=== PATIENT | female | born 1970 | race Caucasian/White ===

== ENCOUNTER → 2016-08-10 | Outpatient (CLI) | payer OTHER ==
[~2016-08-10] MED LIST: ATOR20TA9 PO; FENO145T13 PO; FERR324T5 PO; GADOBUTROL 10 MMOL/10 ML VIAL ONE; GLIP5TAB10 PO; HYDR-3138 PO; IBUP800T PO; METF10002 PO; OMEP-110 PO; ONDA-39 PO
== END | disposition home or self-care (01) ==
LOC: EDSTATUS 07-06 14:00 → CFH 08:55
PROVIDERS: ATTEND Specialist
DX: K86.89 Other specified diseases of pancreas (principal); Z90.49 Acquired absence of other specified parts of digestive tract
CPT/HCPCS: 74183; 82565; A9585